=== PATIENT | male | born 2005 | race Caucasian/White ===

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

== ENCOUNTER 2024-03-15 09:19 | Outpatient (CLI) | payer BC ==
--- NOTE | 2024-03-15 21:52 | XRAY Report ---
PROCEDURE: Lumbar Spine 2-3V INDICATIONS: LOW BACK PAIN TECHNIQUE: 2 views of the lumbar spine were acquired. COMPARISON: None. FINDINGS: Surgical change: None. Bones: 5 [id number] vertebrae are present. There is normal bony alignment. No vertebral body co mpression fractures. No suspicious bony lesions. Mild intervertebral disc height loss at L5-S1. Soft tissues: Overlying bowel gas pattern is normal. No suspicious soft tissue calcifications. IMPRESSION: No acute radiographic abnormality of the lumbar spine. Reviewed by: Cody Thomas MD on 03/15/2024 9:50 PM PDT Approved by: Cody Thomas MD on 03/15/2024 9:50 PM PDT Station ID: [id number]
--- NOTE | 2024-03-16 13:36 | XRAY Report ---
PROCEDURE: Chest 2V INDICATIONS: PHYSICAL TECHNIQUE: 2 views of the chest were obtained. COMPARISON: None. FINDINGS: Surgical changes and devices: None. Lungs and pleura: No pleural effusions or pneumothorax. Lungs are clear. Mediastinum: Mediastinal contours appear normal. Heart size is normal. Bones and chest wall: No suspicious bony lesions. Overlying soft tissues appear unremarkable. IMPRESSION: Normal two-view chest x-ray Reviewed by: Skip Terry MD on 03/16/2024 12:35 PM [facility] Approved by: Skip Terry MD on 03/16/2024 12:35 PM [facility] Station ID: [id number]
== END 2024-03-15 23:59 | disposition home or self-care (01) ==
LOC: DI.S 09:19
PROVIDERS: ATTEND Registered Nurse
DX: M54.59 Other low back pain (principal); Z04.89 Encounter for examination and observation for other specified reasons